=== PATIENT | male | born 2000 | race Caucasian/White ===

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

== ENCOUNTER 2019-02-03 00:06 | Emergency (ER) | payer OTHER ==
[~2019-02-03] VITALS: Ht 172.7 cm; Wt 61.4 kg
[~2019-02-03 00:06] MED LIST changes: +IBUP-1506 PO; -NO MEDS
[2019-02-03] MEDS ORDERED: ACETAMINOPHEN 500 MG TABLET PO ONE (01:15)
[2019-02-03] MEDS ORDERED: CEPHALEXIN MONOHYDRATE 500 MG CAPSULE PO ONE (01:15)
[2019-02-03 01:41] VITALS: BP 124/68
== END 2019-02-03 02:18 | disposition home or self-care (01) ==
LOC: EMS 00:07
DX: J02.9 Acute pharyngitis, unspecified (principal)
CPT/HCPCS: 87430